=== PATIENT | female | born 1955 | race Caucasian/White ===

== ENCOUNTER → 2019-04-14 | Outpatient (CLI) | payer SELFPAY ==
[~2019-04-14] MED LIST: FISH OIL500 M1 PO; FLUOXETINE HCL10 MG PO; MOTRIN800 MG PO; NAPROXEN500 M1 PO; NKHM; OYSTER SHELL 51 EACH PO; VITAMINS; ZITHROMAX Z PA250 MG PO; ZITHROMAX250 MG PO; [UNRECOGNIZED DRUG - OTHER]
--- NOTE | ~2019-04-14 | EKG ---
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
== END | disposition home or self-care (01) ==
LOC: RESCLI 01:46
DX: F33.2 Major depressive disorder, recurrent severe without psychotic features (principal); Z76.89 Persons encountering health services in other specified circumstances; Z86.73 Personal history of transient ischemic attack (TIA), and cerebral infarction without residual deficits; Z88.8 Allergy status to other drugs, medicaments and biological substances

== ENCOUNTER → 2019-05-05 | Outpatient (CLI) | payer SELFPAY | END | disposition home or self-care (01) | LOC: RESCLI 01:14 | DX: E66.3 Overweight (principal); F33.2 Major depressive disorder, recurrent severe without psychotic features; Z86.73 Personal history of transient ischemic attack (TIA), and cerebral infarction without residual deficits; Z87.891 Personal history of nicotine dependence; Z79.899 Other long term (current) drug therapy; Z88.8 Allergy status to other drugs, medicaments and biological substances ==

== ENCOUNTER → 2019-08-04 | Outpatient (CLI) | payer SELFPAY ==
[~2019-08-04] MED LIST changes: +CYCLOBENZAPRINE5 M3 PO
[2019-08-04 09:07] LABS: BASO % 0.8 % (0.0-1.0); EOS # 0.2 10*3/uL (0.0-0.4); EOS % 5.9 % (1.0-4.0); HEMATOCRIT 43.5 % (37.0-47.0); HEMOGLOBIN 14.4 g/dl (12.0-16.0); LYMPH # 1.2 10*3/uL (1.3-4.4); LYMPH % 30.1 % (27.0-41.0); MEAN CELL VOLUME 92.9 fl (81.0-99.0); MEAN CORPUSCULAR HGB 30.8 pg (27.0-31.0); MEAN CORPUSCULAR HGB CONC 33.1 g/dl (33.0-37.0); MEAN PLATELET VOLUME 12.2 fl (9.6-12.3); MONO # 0.5 10*3/uL (0.1-1.0); MONO % 12.6 % (3.0-9.0); NEUT % 50.6 % (47.0-73.0); PLATELET COUNT AUTOMATED 166 10*3/uL (130-400); RED BLOOD COUNT 4.68 10*6/uL (4.10-5.10); RED CELL DISTRI WIDTH 12.6 % (0-14.5); WHITE BLOOD COUNT 3.9 10*3/uL (4.8-10.8)
[2019-08-04 09:40] LABS: ALBUMIN 3.6 gm/dl (3.1-4.5); ALKALINE PHOSPHATASE 75 U/L (45-117); BUN 12 mg/dl (7-24); CHLORIDE 108 mmol/L (98-107); CHOLESTEROL 172 mg/dL (<200); CREATININE 0.77 mg/dL (0.55-1.02); PHOSPHOROUS 3.4 mg/dL (2.5-4.9); POTASSIUM 3.9 mmol/L (3.5-5.1); SGOT/AST 12 IU/L (3-35); SGPT/ALT 26 U/L (12-78); SODIUM 140 mmol/L (136-145); TOTAL PROTEIN 6.9 gm/dL (6.4-8.2); TRIGLYCERIDES 91 mg/dl (<150); VLDL CHOLESTEROL 18 mg/dL (6-40)
[2019-08-04 09:47] LABS: HDL CHOLESTEROL 61 mg/dl (40-60); LDL CHOLESTEROL 93 mg/dL (9-159)
[2019-08-04 10:11] LABS: VITAMIN D, 25-HYDROXY 37.6 ng/mL (30-100)
== END | disposition home or self-care (01) ==
LOC: RESCLI 08:30
PROVIDERS: Internal Medicine
DX: F33.2 Major depressive disorder, recurrent severe without psychotic features (principal); G43.009 Migraine without aura, not intractable, without status migrainosus; E66.3 Overweight; Z86.73 Personal history of transient ischemic attack (TIA), and cerebral infarction without residual deficits; Z68.29 Body mass index [BMI] 29.0-29.9, adult; Z79.899 Other long term (current) drug therapy; Z88.8 Allergy status to other drugs, medicaments and biological substances

== ENCOUNTER 2019-09-01 13:36 | Emergency (ER) | payer SELFPAY ==
[~2019-09-01] VITALS: Ht 165.1 cm; Wt 72.6 kg
[~2019-09-01 13:36] MED LIST changes: -CYCLOBENZAPRINE5 M3 PO
[2019-09-01] MEDS ORDERED: CYCLOBENZAPRINE5 M3 PO (15:40)
== END 2019-09-01 15:24 | disposition home or self-care (01) ==
LOC: ED 13:36
DX: R51 Headache (principal); M54.2 Cervicalgia; Z79.899 Other long term (current) drug therapy; V89.2XXA Person injured in unspecified motor-vehicle accident, traffic, initial encounter; Y93.I9 Activity, other involving external motion; Y92.488 Other paved roadways as the place of occurrence of the external cause; Y99.8 Other external cause status

== ENCOUNTER 2019-09-15 21:06 | Emergency (ER) | payer SELFPAY ==
[~2019-09-15] VITALS: Ht 165.1 cm; Wt 72.6 kg
--- NOTE | ~2019-09-15 | EKG ---
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
[~2019-09-15 21:06] MED LIST changes: +CYCLOBENZAPRINE5 M3 PO
[2019-09-15 21:46] LABS: BASO % 0.8 % (0.0-1.0); EOS # 0.2 10*3/uL (0.0-0.4); EOS % 4.4 % (1.0-4.0); HEMATOCRIT 43.9 % (37.0-47.0); HEMOGLOBIN 14.4 g/dl (12.0-16.0); LYMPH # 1.5 10*3/uL (1.3-4.4); LYMPH % 29.2 % (27.0-41.0); MEAN CELL VOLUME 91.6 fl (81.0-99.0); MEAN CORPUSCULAR HGB 30.1 pg (27.0-31.0); MEAN CORPUSCULAR HGB CONC 32.8 g/dl (33.0-37.0); MONO # 0.5 10*3/uL (0.1-1.0); MONO % 9.1 % (3.0-9.0); NEUT # 2.8 10*3/uL (2.3-7.9); NEUT % 56.3 % (47.0-73.0); PLATELET COUNT AUTOMATED 144 10*3/uL (130-400); RED BLOOD COUNT 4.79 10*6/uL (4.10-5.10); RED CELL DISTRI WIDTH 12.1 % (0-14.5)
[2019-09-15 22:02] LABS: ALBUMIN 3.8 gm/dl (3.1-4.5); ALKALINE PHOSPHATASE 74 U/L (45-117); BUN 15 mg/dl (7-24); CHLORIDE 104 mmol/L (98-107); CREATININE 0.81 mg/dL (0.55-1.02); POTASSIUM 3.6 mmol/L (3.5-5.1); SGOT/AST 18 IU/L (3-35); SGPT/ALT 41 U/L (12-78); SODIUM 140 mmol/L (136-145); TOTAL PROTEIN 7.3 gm/dL (6.4-8.2)
[2019-09-15 22:04] LABS: TROPONIN I < 0.015 ng/ml (<0.045)
== END 2019-09-16 01:42 | disposition short-term general hospital (02) ==
LOC: ED 21:06
PROVIDERS: Emergency Medicine
DX: G45.9 Transient cerebral ischemic attack, unspecified (principal); Z86.73 Personal history of transient ischemic attack (TIA), and cerebral infarction without residual deficits; Z79.899 Other long term (current) drug therapy

== ENCOUNTER → 2019-10-14 | Outpatient (CLI) | payer OTHER | END | disposition home or self-care (01) | LOC: RESCLI 01:35 | DX: G45.9 Transient cerebral ischemic attack, unspecified (principal); F33.2 Major depressive disorder, recurrent severe without psychotic features; E78.5 Hyperlipidemia, unspecified; E66.3 Overweight; Z79.899 Other long term (current) drug therapy; Z88.8 Allergy status to other drugs, medicaments and biological substances ==

== ENCOUNTER → 2019-10-19 | Outpatient (CLI) | payer OTHER | END | disposition home or self-care (01) | LOC: MAMMO 11:30 | DX: Z12.31 Encounter for screening mammogram for malignant neoplasm of breast (principal) ==

== ENCOUNTER → 2020-08-20 | Outpatient (CLI) | payer OTHER | END | disposition home or self-care (01) | LOC: RESCLI 08-17 04:44 | PROVIDERS: ATTEND Internal Medicine Nephrology | DX: G45.9 Transient cerebral ischemic attack, unspecified (principal); F33.2 Major depressive disorder, recurrent severe without psychotic features; R07.89 Other chest pain; R06.2 Wheezing; J40 Bronchitis, not specified as acute or chronic; Z79.899 Other long term (current) drug therapy; Z98.890 Other specified postprocedural states; Z87.891 Personal history of nicotine dependence ==

== ENCOUNTER → 2020-08-29 | Outpatient (CLI) | payer OTHER | END | disposition home or self-care (01) | LOC: CARD 08:21 | PROVIDERS: ATTEND Student in an Organized Health Care Education/Training Program | DX: I36.1 Nonrheumatic tricuspid (valve) insufficiency (principal) ==

== ENCOUNTER → 2021-04-30 | Outpatient (CLI) | payer MEDICARE, MEDICAID ==
[2021-04-30 16:13] LABS: ALBUMIN 3.8 gm/dl (3.1-4.5); BUN 11 mg/dl (7-24); CHLORIDE 109 mmol/L (98-107); CHOLESTEROL 173 mg/dL (<200); CREATININE 0.83 mg/dL (0.55-1.02); SGOT/AST 10 IU/L (3-35); SGPT/ALT 25 U/L (12-78); SODIUM 143 mmol/L (136-145)
[2021-04-30 16:15] LABS: ALKALINE PHOSPHATASE 69 U/L (45-117); LDL CHOLESTEROL 92 mg/dL (9-159); TOTAL PROTEIN 7.3 gm/dL (6.4-8.2); TRIGLYCERIDES 88 mg/dl (<150)
== END | disposition home or self-care (01) ==
LOC: LAB 15:24
PROVIDERS: ATTEND Family Medicine
DX: E78.00 Pure hypercholesterolemia, unspecified (principal); E74.9 Disorder of carbohydrate metabolism, unspecified; F41.1 Generalized anxiety disorder; E74.00 Glycogen storage disease, unspecified; Z79.899 Other long term (current) drug therapy

== ENCOUNTER → 2021-06-26 | Outpatient (CLI) | payer MEDICARE, MEDICAID | END | disposition home or self-care (01) | LOC: MAMMO 13:46 | PROVIDERS: ATTEND Family Medicine | DX: Z12.31 Encounter for screening mammogram for malignant neoplasm of breast (principal); N64.89 Other specified disorders of breast ==

== ENCOUNTER → 2022-05-29 | Outpatient (CLI) | payer OTHER, MEDICAID ==
[2022-05-29 12:26] LABS: HEMATOCRIT 44.7 % (37.0-47.0); MEAN CELL VOLUME 93.7 fl (81.0-99.0); MEAN CORPUSCULAR HGB 31.2 pg (27.0-31.0); MEAN CORPUSCULAR HGB CONC 33.3 g/dl (33.0-37.0); MEAN PLATELET VOLUME 11.7 fl (9.6-12.3); RED BLOOD COUNT 4.77 10*6/uL (4.10-5.10); RED CELL DISTRI WIDTH 12.5 % (0-14.5); WHITE BLOOD COUNT 3.9 10*3/uL (4.8-10.8)
[2022-05-29 12:45] LABS: BUN 18 mg/dl (7-24); CHLORIDE 111 mmol/L (98-107); POTASSIUM 3.9 mmol/L (3.5-5.1); SGPT/ALT 26 U/L (12-78); SODIUM 144 mmol/L (136-145)
[2022-05-29 12:55] LABS: ALKALINE PHOSPHATASE 62 U/L (45-117); CHOLESTEROL 185 mg/dL (<200); CREATININE 0.96 mg/dL (0.55-1.02); FREE T4 0.95 ng/dl (0.76-1.46); LDL CHOLESTEROL 106 mg/dL (9-159); SGOT/AST 14 IU/L (3-35); THYROID STIM HORMONE (HS) 0.615 uIU/ml (0.358-4.75); TOTAL PROTEIN 7.1 gm/dL (6.4-8.2); TRIGLYCERIDES 82 mg/dl (<150)
[2022-05-29 13:00] LABS: VITAMIN D, 25-HYDROXY 56.1 ng/mL (30-100)
== END | disposition home or self-care (01) ==
LOC: LAB 12:04
PROVIDERS: ATTEND Family Medicine
DX: K21.9 Gastro-esophageal reflux disease without esophagitis (principal); E74.9 Disorder of carbohydrate metabolism, unspecified; E55.9 Vitamin D deficiency, unspecified; R53.83 Other fatigue; I25.10 Atherosclerotic heart disease of native coronary artery without angina pectoris; E74.00 Glycogen storage disease, unspecified; F41.1 Generalized anxiety disorder; Z79.899 Other long term (current) drug therapy

== ENCOUNTER → 2022-07-23 | Outpatient (CLI) | payer OTHER, MEDICAID | END | disposition home or self-care (01) | LOC: LAB 10:33 → CT 11:00 | PROVIDERS: ATTEND Family Medicine | DX: R10.9 Unspecified abdominal pain (principal) ==

== ENCOUNTER → 2023-03-13 | Outpatient (CLI) | payer OTHER, MEDICAID | END | disposition home or self-care (01) | LOC: RAD 11:35 | PROVIDERS: ATTEND Family Medicine | DX: M47.816 Spondylosis without myelopathy or radiculopathy, lumbar region (principal); M48.061 Spinal stenosis, lumbar region without neurogenic claudication ==

== ENCOUNTER → 2023-05-07 | Outpatient (CLI) | payer OTHER, MEDICAID ==
[2023-05-07 12:52] LABS: HEMATOCRIT 45.2 % (37.0-47.0); MEAN CELL VOLUME 91.9 fl (81.0-99.0); MEAN CORPUSCULAR HGB 30.7 pg (27.0-31.0); MEAN CORPUSCULAR HGB CONC 33.4 g/dl (33.0-37.0); RED BLOOD COUNT 4.92 10*6/uL (4.10-5.10); RED CELL DISTRI WIDTH 12.2 % (0-14.5); WHITE BLOOD COUNT 4.9 10*3/uL (4.8-10.8)
[2023-05-07 13:31] LABS: VITAMIN D, 25-HYDROXY 70.2 ng/mL (30-100)
[2023-05-07 13:32] LABS: ALKALINE PHOSPHATASE 70 U/L (46-116); BUN 13 mg/dl (9-23); CHLORIDE 106 mmol/L (98-107); CHOLESTEROL 177 mg/dL (<200); FREE T4 1.15 ng/dl (0.89-1.76); LDL CHOLESTEROL 83 mg/dL (9-159); POTASSIUM 3.8 mmol/L (3.4-5.1); SGPT/ALT 22 U/L (10-49); THYROID STIM HORMONE (HS) 0.692 uIU/ml (0.550-4.780); TOTAL PROTEIN 6.9 gm/dL (6.0-8.0); TRIGLYCERIDES 142 mg/dl (<150)
== END | disposition home or self-care (01) ==
LOC: LAB 12:33
PROVIDERS: ATTEND Family Medicine
DX: I10 Essential (primary) hypertension (principal); R53.83 Other fatigue; E55.9 Vitamin D deficiency, unspecified; E11.9 Type 2 diabetes mellitus without complications

== ENCOUNTER → 2023-09-28 | Outpatient (CLI) | payer OTHER, MEDICAID | END | disposition home or self-care (01) | LOC: MAMMO 10:00 → US 10:30 → MAMMO 11:30 | PROVIDERS: ATTEND Family Medicine | DX: Z12.31 Encounter for screening mammogram for malignant neoplasm of breast (principal); R10.2 Pelvic and perineal pain; Z90.721 Acquired absence of ovaries, unilateral ==

== ENCOUNTER → 2023-10-12 | Outpatient (CLI) | payer OTHER, MEDICAID | END | disposition home or self-care (01) | LOC: CT 14:00 | PROVIDERS: ATTEND Family Medicine | DX: K57.30 Diverticulosis of large intestine without perforation or abscess without bleeding (principal); R19.00 Intra-abdominal and pelvic swelling, mass and lump, unspecified site; R10.2 Pelvic and perineal pain ==

== ENCOUNTER → 2024-02-01 | Outpatient (CLI) | payer MEDICARE ==
[2024-02-01 13:02] LABS: ALKALINE PHOSPHATASE 84 U/L (46-116); BUN 12 mg/dl (9-23); CHLORIDE 106 mmol/L (98-107); CHOLESTEROL 158 mg/dL (<200); CPK 49 U/L (34-171); LDL CHOLESTEROL 72 mg/dL (9-159); POTASSIUM 4.1 mmol/L (3.4-5.1); SGPT/ALT 23 U/L (5-49); TOTAL PROTEIN 7.1 gm/dL (6.0-8.0); TRIGLYCERIDES 95 mg/dl (<150)
== END ==
LOC: LAB 12:18
PROVIDERS: ATTEND Family Medicine
DX: F41.1 Generalized anxiety disorder (principal); E78.00 Pure hypercholesterolemia, unspecified; E74.9 Disorder of carbohydrate metabolism, unspecified; E74.00 Glycogen storage disease, unspecified; Z79.899 Other long term (current) drug therapy

== ENCOUNTER → 2024-12-16 | Outpatient (CLI) | payer MEDICARE ==
[~2024-12-16] MED LIST changes: +IOHEXOL 300 MG/ML 100 ML VIAL IV ONE; +IOHEXOL 300 MG/ML 100 ML VIAL ONE
== END | disposition home or self-care (01) ==
LOC: CT 00:41
PROVIDERS: ATTEND Family Medicine
DX: C34.32 Malignant neoplasm of lower lobe, left bronchus or lung (principal); J98.11 Atelectasis; I71.21 Aneurysm of the ascending aorta, without rupture; N63.25 Unspecified lump in the left breast, overlapping quadrants; I25.10 Atherosclerotic heart disease of native coronary artery without angina pectoris

== ENCOUNTER → 2025-01-23 | Outpatient (CLI) | payer MEDICARE ==
[~2025-01-23] MED LIST changes: -IOHEXOL 300 MG/ML 100 ML VIAL IV ONE; -IOHEXOL 300 MG/ML 100 ML VIAL ONE
[2025-01-23 09:31] LABS: HEMATOCRIT 46.9 % (37.0-47.0); MEAN CELL VOLUME 90.4 fl (81.0-99.0); MEAN CORPUSCULAR HGB 29.1 pg (27.0-31.0); MEAN CORPUSCULAR HGB CONC 32.2 g/dl (33.0-37.0); MEAN PLATELET VOLUME 11.8 fl (9.6-12.3); RED BLOOD COUNT 5.19 10*6/uL (4.10-5.10); RED CELL DISTRI WIDTH 12.2 % (0-14.5); WHITE BLOOD COUNT 4.3 10*3/uL (4.8-10.8)
[2025-01-23 10:32] LABS: ALKALINE PHOSPHATASE 91 U/L (46-116); BUN 13 mg/dl (9-23); CHLORIDE 106 mmol/L (98-107); CHOLESTEROL 172 mg/dL (<200); LDL CHOLESTEROL 91 mg/dL (9-159); POTASSIUM 3.8 mmol/L (3.4-5.1); SGPT/ALT 28 U/L (5-49); TOTAL PROTEIN 7.1 gm/dL (6.0-8.0); TRIGLYCERIDES 111 mg/dl (<150)
[2025-01-23 10:33] LABS: VITAMIN D, 25-HYDROXY 59.3 ng/mL (30-100)
== END | disposition home or self-care (01) ==
LOC: LAB 09:00
PROVIDERS: ATTEND Family Medicine
DX: R91.8 Other nonspecific abnormal finding of lung field (principal); E78.00 Pure hypercholesterolemia, unspecified; E55.9 Vitamin D deficiency, unspecified; R53.83 Other fatigue; E74.9 Disorder of carbohydrate metabolism, unspecified